=== PATIENT | male | born 1985 | race Caucasian/White ===

== ENCOUNTER 2024-02-07 04:00 | Emergency (ER) | payer OTHER, SELFPAY ==
--- NOTE | ~2024-02-07 | CT_ITS ---
EXAMINATION: CT ABDOMEN AND PELVIS WITHOUT CONTRAST CLINICAL INFORMATION: R flank pain COMPARISON: 12/08/2018 TECHNIQUE: Multidetector volumetric imaging was performed from the superior aspect of the liver through the pubic symphysis. Sagittal and coronal reformatted images were obtained on the technologist's workstation. This CT examination was performed using dose optimization techniques as appropriate, variously including the following: *Automated exposure control *Adjustment of mA and/or kV according to patient size (this includes techniques or standardized protocols for targeted exams where dose is matched to indication/reason for exam; i.e. extremities or head) *Use of iterative reconstruction technique DLP: 990 mGy-cm FINDINGS: LUNG BASES: The visualized lung bases are unremarkable. LIVER, GALLBLADDER, AND BILIARY TREE: The liver measures 20.5 cm craniocaudal, consistent with mild hepatomegaly. Liver is normal in attenuation and contour. No focal lesions are identified. No biliary ductal dilatation. The gallbladder is unremarkable with no evidence of radiopaque gallstones, gallbladder wall thickening, or obvious pericholecystic inflammatory changes. PANCREAS: Unremarkable. SPLEEN: Unremarkable. ADRENAL GLANDS: Unremarkable. KIDNEYS AND URETERS: There is a 3 mm calculus at the right ureterovesical junction producing mild right hydroureteronephrosis with periureteral and peripelvic fat stranding. No additional renal or ureteral calculi. The kidneys are normal in size, shape, and attenuation. No perinephric stranding. BLADDER: Unremarkable. GASTROINTESTINAL TRACT: Stomach, small bowel, and colon are normal in caliber. No bowel wall thickening or surrounding inflammatory changes. Appendix is normal. No intraperitoneal free fluid or free air. ABDOMINAL WALL: No significant hernia is appreciated. LYMPH NODES: Normal. VASCULAR: Unremarkable. PELVIC VISCERA: Unremarkable. OSSEOUS STRUCTURES: Unremarkable. CT/CT abdomen pelvis wo IV con IMPRESSION: A 3 mm calculus at the right ureterovesical junction produces mild right hydroureteronephrosis.
[2024-02-07 04:39] VITALS: BP 180/110; PULSE 61; RESP 18; TEMP 36.4; O2SAT 99; BMI 38.2
--- NOTE | 2024-02-07 04:48 | ED.ABDPAIN ---
HPI - Abdominal Pain General Chief Complaint: Abdominal Pain Stated Complaint: right side abdominal pain Time Seen by Provider: 02/07/24 04:47 Source: patient Mode of arrival: ambulatory Limitations: no limitations History of Present Illness ED Provider: KEO HPI narrative: 38 yo male with PMH of renal colic no prior surgeries started with R flank pain n/v 4 hours ago he is able to urinate feels like a kidney stone, no fevers. Unable to get comfortable MD elicited complaint: flank pain Pertinent past history: kidney stones Onset (ago): hour(s) (4) Pain Consistency: constant Location: R flank Severity: severe Quality: stabbing Radiation: RLQ Migration to: no migration Exacerbating factors: nothing Relieving factors: nothing Context: history of similar episodes Associated symptoms: nausea and vomiting Related Data Previous Rx's ?Medication ?Instructions ?Recorded ibuprofen 600 mg tablet 600 mg PO Q6H PRN pain #30 tabs 02/07/24 morphine 15 mg immediate release 15 mg PO Q6H PRN pain #12 tabs 02/07/24 tablet ondansetron 4 mg disintegrating 4 mg PO Q8H PRN nausea and 02/07/24 tablet vomiting #20 tabs tamsulosin 0.4 mg capsule 0.4 mg PO DAILY 5 days #5 caps 02/07/24 Allergies Allergy/AdvReac Type Severity Reaction Status Date / Time Penicillins [PENICILLINS] Allergy Unknown UNK Unverified 02/07/24 04:40 Review of Systems Review of Systems Constitutional : No Weight loss, No Fever, No Chills ENT/Mouth : No sore throat, No Rhinorrhea Eyes: No Swelling, No Redness Cardiovascular : No Chest Pain, No SOB, NoEdema Respiratory : No Cough, No Sputum, No Wheezing Gastrointestinal : Positive Nausea, Positive Vomiting, no Diarrhea, positive abdominal Pain, No Hematochezia, No Melena Genitourinary : No Dysuria, No Urinary Frequency, No Hematuria, No Urgency Musculoskeletal : No joint pain, No Myalgias, No Joint Swelling Skin : No Skin Lesions, No rash Neuro : No Weakness, No Numbness, No Dizziness, No Headache Psych : No Anxiety/Panic, No Depression All other systems reviewed and are negative. [facility] Past Medical History Attestation statement: The following information was validated with the patient. Medical History Renal colic Social History Social History (Updated 02/07/24 @ 05:07 by Kate Rangel DO) Patient Tobacco Use Status: Tobacco use Unknown Smoked in Last 30 Days: No Use of substances other than those prescribed or required for medical reasons: Yes Substance Use Frequency: Daily Advance Directives: No Advance Directives Information Provided: No Do you have a plan to hurt others: No Plan Physical Exam ED Vital Signs: Vital Signs - 24 hr 02/07/24 04:39 02/07/24 05:25 Temperature 97.5 F Pulse Rate 61 Respiratory Rate 18 14 Blood Pressure 180/110 H Pulse Oximetry 99 Oxygen Delivery Method Room Air BMI result Body Mass Index 38.2 Appearance: Alert. Oriented X3. in pain moderate acute distress. Eyes: Pupils equal, round and reactive to light. ENT: Pharynx normal. Neck: Normal inspection. Neck supple. CVS: Normal heart rate and rhythm. Pulses normal. Respiratory: No respiratory distress. Breath sounds normal. Abdomen: Soft and moderate R sided abdominal ttp Skin: Skin warm and dry. Normal skin color. Normal skin turgor. Extremities: No lower extremity edema. Neuro: Oriented X 3. No motor deficit. No sensory deficit. Medical Decision Making Medical Decision Making [facility] Narrative: 38 yo male with PMH of renal colic here with abrupt onset R flank pain and n/v he is very uncomfortable and clinical picture is concerning for renal colic at this time will need basic labs, UA and CT scan for renal colic. IVF, IV toradol, IV dilaudid for pain ordered. Differential Diagnosis Differential Diagnoses: The differential diagnosis associated with the presentation includes renal colic, colitis, appendicitis Admission/Observation Consideration of admission/observation: Escalation of care including admission/observation considered Cr improved pain improved tolerating PO can be managed as outpatient Lab Data [facility] Lab Attestation statement: I reviewed the patient's lab results. 02/07/24 05:19 02/07/24 05:18 Labs: Lab Results 02/07/24 02/07/24 02/07/24 Range/Units 05:18 05:19 06:15 WBC 14.8 H (4.8-10.8) X10*3/uL RBC 4.87 (4.60-5.80) X10*6/uL Hgb 14.5 (14.0-18.0) g/dl Hct 40.4 L (42.0-52.0) % MCV 83.0 (80.0-98.0) fL MCH 29.8 (27.0-33.0) pg MCHC 35.9 (31.0-36.0) g/dl RDW 12.5 (11.0-16.0) % Plt Count 279 (160-400) X10*3/uL MPV 9.6 (9.4-12.4) fL Immature Gran % (Auto) 0.5 H (0.0-0.4) % Neut % (Auto) 75.3 H (45-73) % Lymph % (Auto) 15.9 L (20-40) % [place] % (Auto) 7.2 (2-11) % Eos % (Auto) 0.7 (0-4) % Baso % (Auto) 0.4 (0-2) % Lymph # (Auto) 2.4 (1.2-4.9) X10*3/uL [place] # (Auto) 1.1 (0.1-1.2) X10*3/uL Eos # (Auto) 0.1 (0.0-0.4) X10*3/uL Baso # (Auto) 0.1 (0.0-0.2) X10*3/uL Abs Immat Gran (auto) 0.07 H (0.00-0.03) X10*3/uL Absolute Neuts (auto) 11.2 H (2.0-8.3) x10*3/uL Absolute Nucleated RBC 0.000 (0.0-0.012) X10*3/uL Nucleated RBC % (auto) 0.0 (0.0-0.2) /100WBC Sodium 141 (135-145) mmol/L Potassium 4.1 (3.3-5.1) mmol/L Chloride 106 (96-108) mmol/L Carbon Dioxide 21 L (22-29) mmol/L Anion Gap 18 (12-20) BUN 19 H (9-16) mg/dL Creatinine 1.09 (0.5-1.4) mg/dL Estim Creat Clear Calc 135.5 Estimated GFR > 60 Random Glucose 126 H (60-115) mg/dL Calcium 9.6 (8.4-10.2) mg/dL Urine Color Yellow Urine Appearance Clear Urine pH 6.0 (5.0-9.0) Ur Specific [place] >= 1.030 H (1.005-1.025) Urine Protein Trace (Neg-Trace) mg/dL Urine Glucose (UA) Negative (Negative) mg/dL Urine Ketones Trace (Negative) mg/dL Urine Blood Small (1+) H (Negative) Urine Nitrite Negative (Negative) Ur Leukocyte Esterase Negative (Negative) Independent Interpretation I performed an independent interpretation of an: CT Scan (UVJ stone) Radiology Impression Discussion of test interpretation with radiology: I have reviewed the radiologist's reading. Independent Historian Clinical information obtained from an independent historian. History obtained from or confirmed by: Parent Prescription Management I considered prescription management with: Pain Medication and Other Medications Administered Discontinued Medications Generic Name Dose Route Start Last Admin Trade Name Freq PRN Reason Stop Dose Admin Hydromorphone HCl 1 mg 02/07/24 04:47 02/07/24 05:25 Hydromorphone Hcl 1 Mg/Ml Syringe IVPUSH 02/07/24 04:48 1 mg ONCE ONE Administration Protocol Sodium Chloride 1,000 mls @ 999 mls/hr 02/07/24 04:47 02/07/24 05:25 Ns IV 02/07/24 05:47 999 mls/hr .Q1H1M ONE Administration Ketorolac Tromethamine 15 mg 02/07/24 04:47 02/07/24 05:24 Ketorolac Tromethamine 15 Mg/Ml Vial IVPUSH 02/07/24 04:48 15 mg ONCE ONE Administration Ondansetron HCl 4 mg 02/07/24 04:47 02/07/24 05:24 Ondansetron Hcl 4 Mg/2 Ml Vial IVPUSH 02/07/24 04:48 4 mg ONCE ONE Administration Tamsulosin HCl 0.4 mg 02/07/24 05:44 02/07/24 06:08 Tamsulosin Hcl 0.4 Mg Capsule PO 02/07/24 05:45 0.4 mg ONCE ONE Administration Critical Care Time Critical Care Time Critical Care Time: Yes Total Critical Care Time: 35 Attestation: pain improved with IV dilaudid, repeat assessment I attest to this time spent taking care of the patient Discharge Plan Discharge Clinical Impression: Ureterolithiasis Patient Disposition: Home, Self-Care Instructions: Ureteral Stones (ED) Additional Instructions: stay hydrated drink 60 ounces of water a day return for worsening pain, fevers, vomiting, inability to urinate, or any other concerns. CT scan shows small stone right at junction of bladder 3mm no other stones seen Prescriptions: New tamsulosin 0.4 mg capsule 0.4 mg PO DAILY 5 Days Qty: 5 0RF ibuprofen 600 mg tablet 600 mg PO Q6H PRN (Reason: pain) Qty: 30 0RF morphine 15 mg tablet 15 mg PO Q6H PRN (Reason: pain) Qty: 12 0RF Rx Instructions: partial fill okay; Partial Fill upon patient request. ondansetron 4 mg tablet,disintegrating 4 mg PO Q8H PRN (Reason: nausea and vomiting) Qty: 20 0RF Referrals: Francis Steven MD [Physician] - (for follow up as needed with urologist can call to schedule appointment) Stand Alone Forms: Work/School Release Print Language: Maori
[2024-02-07 05:23] LABS: Basophils Absolute Auto 0.1 X10*3/uL (0.0-0.2); Basophils Percent Auto 0.4 % (0-2); Eosinophils Absolute Auto 0.1 X10*3/uL (0.0-0.4); Eosinophils Percent Auto 0.7 % (0-4); Hematocrit 40.4 % (42.0-52.0); Hemoglobin 14.5 g/dl (14.0-18.0); Imm Gran Abs Auto 0.07 X10*3/uL (0.00-0.03); Imm Gran Pct Auto 0.5 % (0.0-0.4); Lymphocytes Absolute Auto 2.4 X10*3/uL (1.2-4.9); Lymphocytes Percent Auto 15.9 % (20-40); MANUAL DIFF FLAG NO; Mean Corpuscular HGB Conc 35.9 g/dl (31.0-36.0); Mean Corpuscular Hemoglobin 29.8 pg (27.0-33.0); Mean Platelet Volume 9.6 fL (9.4-12.4); Monocytes Absolute Auto 1.1 X10*3/uL (0.1-1.2); Monocytes Percent Auto 7.2 % (2-11); Neutrophils Absolute Auto 11.2 x10*3/uL (2.0-8.3); Neutrophils Percent Auto 75.3 % (45-73); Platelet Count 279 X10*3/uL (160-400); Red Blood Count 4.87 X10*6/uL (4.60-5.80); Red Cell Distribution Width 12.5 % (11.0-16.0); White Blood Count 14.8 X10*3/uL (4.8-10.8)
[2024-02-07] MEDS: ondansetron HCL 4 MG/2 ML VIAL IVPUSH (05:24)
[2024-02-07] MEDS: Ketorolac Tromethamine 15 MG/ML VIAL IVPUSH (05:24)
[2024-02-07 05:25] VITALS: RESP 14
[2024-02-07] MEDS: HYDROmorphone HCl 1 MG/ML SYRINGE IVPUSH (05:25)
[2024-02-07] MEDS: 0.9 % Sodium Chloride 1,000 ML 999 ML IV (05:25)
[2024-02-07 05:35] LABS: Anion Gap 18 (12-20); Blood Urea Nitrogen 19 mg/dL (9-16); Calcium 9.6 mg/dL (8.4-10.2); Carbon Dioxide 21 mmol/L (22-29); Chloride 106 mmol/L (96-108); Creatinine Clr Calc Pharmacy 135.5; Estimated Glomerular Filt Rate > 60; Glucose Random 126 mg/dL (60-115); Potassium 4.1 mmol/L (3.3-5.1); Sodium 141 mmol/L (135-145)
[2024-02-07] MEDS: Tamsulosin HCL 0.4 MG CAPSULE PO (06:08)
[2024-02-07 06:23] LABS: Appearance Urine Clear; Color Urine Yellow; Glucose Urine UA Negative (Negative); Leukocyte Esterase Urine Negative (Negative); Nitrite Urine Negative (Negative); Specific Gravity - Urine >= 1.030 (1.005-1.025); UMIC TRIGGER UACC YES; Urine Blood Small (1+) (Negative); Urine Ketones Trace mg/dL (Negative); Urine Protein Trace mg/dL (Neg-Trace)
[2024-02-07 06:38] LABS: Bacteria Urine None Seen (None Seen); Calcium Oxalate Crystals Urine Present; Squamous Epithelial Cell Urine 0-2 /HPF (0-2); WBC Urine 0-5 /HPF (0-5)
[2024-02-07 06:53] VITALS: BP 143/87; PULSE 65; RESP 16; O2SAT 95
[2024-02-07 07:06] VITALS: BP 143/87; PULSE 65; RESP 16; TEMP 36.3; O2SAT 95
== END 2024-02-07 07:07 | disposition home or self-care (01) ==
PROVIDERS: Emergency Provider Emergency Medicine
DX: N20.1 Calculus of ureter (principal); R11.2 Nausea with vomiting, unspecified; R10.31 Right lower quadrant pain; Z79.899 Other long term (current) drug therapy
CPT/HCPCS: 36415; 74176; 80048; 81001; 85025; 96361; 96374; 96375; 99284; 99285; J1170; J1885; J2405